=== PATIENT | male | born 1960 | race Caucasian/White ===

== ENCOUNTER 2022-07-29 07:51 | Day surgery (SDC) | payer BC ==
[~2022-07-29] VITALS: Ht 172.7 cm; Wt 72.1 kg
[~2022-07-29 07:51] MED LIST: ATEN25 PO; OMEP20ER PO; Percocet 5-3251 EACH PO; ZOLP10 PO
[2022-07-29] MEDS ORDERED: Nexium40 MG (08:15)
[2022-07-29] MEDS ORDERED: XANAX (08:15)
[2022-07-29] MEDS ORDERED: METO100ER (08:16)
[2022-07-29] MEDS ORDERED: LISI20 (08:16)
--- NOTE | 2022-07-29 08:32 | NUR ---
07/29/22 0832 ELIAZAR TORIBIO 2 ATTEMPTS AT IV. FIRST ATTEMPT BY MA IN R HAND INFILTRATED. SECOND ATTEMPT BY MA IN R AC SUCCESSFUL.
== END 2022-07-29 09:45 | disposition home or self-care (01) ==
LOC: ORSCSDS 07:51
PROVIDERS: Surgery
PROC: 0DB48ZX Excision of Esophagogastric Junction, Via Natural or Artificial Opening Endoscopic, Diagnostic (ICD-10-PCS; principal; 2022-07-29 09:15)
DX: K21.9 Gastro-esophageal reflux disease without esophagitis (principal); K44.9 Diaphragmatic hernia without obstruction or gangrene; R23.4 Changes in skin texture; E78.5 Hyperlipidemia, unspecified; I10 Essential (primary) hypertension; Z87.891 Personal history of nicotine dependence; Z79.899 Other long term (current) drug therapy
CPT/HCPCS: 88305; 88312; J2704; J7120

== ENCOUNTER 2025-09-06 13:24 | Day surgery (SDC) | payer OTHER ==
[2025-09-06] VITALS (21 sets, daily range): BP systolic 120–173; BP diastolic 68–122
[~2025-09-06 13:24] MED LIST changes: +LISI20; +METO100ER; +Nexium40 MG; +XANAX
--- NOTE | 2025-09-06 14:03 | NUR ---
History, Chart, Medications and Allergies reviewed before start of procedure. Patient States Post-Procedure ride home has been arranged.
--- NOTE | 2025-09-06 14:12 | NUR ---
09/06/25 1412 Omaira Nash CONFIRMED AND REVIEWED H&P, MEDCICATIONS, ALLERGIES, MEDICAL HISTORY, RESPIRATORY HISTORY, VITAL SIGNS, 3-LEAD EKG, CONSENTS, AND PHYSICIAN ORDERS. PATIENT CONFIRMS NPO STATUS AND AGREES WITH SCHEDULED PROCEDURE. MONITOR INTACT WITH CONTINUOUS PULSE OXIMETRY, CAPNOGRAPHY, 3-LEAD EKG, INTERMITTENT BP. SUPPLEMENTAL O2 TO BE TITRATED THROUGHOUT PROCEDURE TO MAINTAIN O2 SATURATION ABOVE 90%. PATIENT DETERMINED TO BE ASA APPROPRIATE FOR PROPOFOL SEDATION PRIOR TO START OF PROCEDURE BY DR. TORRES.
[2025-09-06] MEDS ORDERED: Ondansetron HCl 2 MG / ML 2ML Vial ONE (14:56)
--- NOTE | 2025-09-06 15:24 | NUR ---
Patient States Post-Procedure ride home has been arranged. Discharge instructions reviewed with patient. Patient verbalizes understanding. Copy given to patient to take home. Discharged via wheelchair to private car for ride home.
== END 2025-09-06 23:00 | disposition home or self-care (01) ==
LOC: ORSCMMR 13:24 → ORD 14:00 → ORSCMMR 23:00
PROVIDERS: Family Medicine
PROC: 0DBL8ZX Excision of Transverse Colon, Via Natural or Artificial Opening Endoscopic, Diagnostic (ICD-10-PCS; principal; 2025-09-06 14:00)
PROC: 0DBK8ZX Excision of Ascending Colon, Via Natural or Artificial Opening Endoscopic, Diagnostic (ICD-10-PCS; principal; 2025-09-06 14:00)
DX: Z12.11 Encounter for screening for malignant neoplasm of colon (principal); D12.3 Benign neoplasm of transverse colon; D12.2 Benign neoplasm of ascending colon; K64.0 First degree hemorrhoids; I10 Essential (primary) hypertension; K21.9 Gastro-esophageal reflux disease without esophagitis; E78.5 Hyperlipidemia, unspecified; N40.0 Benign prostatic hyperplasia without lower urinary tract symptoms; R73.03 Prediabetes; Z79.899 Other long term (current) drug therapy; F17.220 Nicotine dependence, chewing tobacco, uncomplicated
CPT/HCPCS: 88305; J2405; J2704; J7120